=== PATIENT | male | born 1985 | race American Indian/Alaskan Native ===

== ENCOUNTER 2017-10-20 13:06 | Emergency (ER) | payer SELFPAY ==
--- NOTE | 2017-10-20 14:16 | Emergency Department Report ---
HPI - General Chief Complaint: Dental/Oral Time Seen by Provider: 10/20/17 13:47 - HPI HPI: Pt reports that he's been having toothache for over 2 months but started having dental abscess 4 days ago. He said he has a dentist but he came to the emergency room because his dentist like him to be an antibiotic before he do any procedure on him. Since that he has problems with his right lower back tooth that is been ongoing due to gum problem and cracked tooth at the back. Pain is 4-10 and a kin on and off. Patient is a smoker. Pain is better when he is not talking worse with eating and talking. Denies any fever or chills. No sore throat or drooling. Denies any difficulty swallowing. Shortness of breath or chest pain.Denies any nasal congestion,runnynose or sinus pain or pressure. No [id number]-[id number] pain medication taken per patient ED Past Medical Hx - Past Medical History Previous Medical History?: Yes Additional medical history: toothach - Surgical History Past Surgical History?: No - Family History Family history: no significant - Social History Smoking Status: Current Every Day Smoker Substance Use Type: Alcohol, Non Opiate Pain - Medications Home Medications: Home Medications Medication Instructions Recorded Confirmed Last Taken Type Acetaminophen/Codeine [Tylenol 1 tab PO Q6H PRN 16 Days #12 tab 10/20/17 Unknown Rx /Codeine # 3 tab] Ibuprofen [Motrin] 600 mg PO Q8H PRN 7 Days #21 tablet 10/20/17 Unknown Rx Penicillin V Potassium 500 mg PO Q8H 10 Days #30 tablet 10/20/17 Unknown Rx ED Review of Systems ROS: Stated complaint: ABCESS Other details as noted in HPI Comment: All other systems reviewed and negative Constitutional: no symptoms reported Eyes: denies: eye pain, eye discharge ENT: dental pain, other (reports dental abscess). denies: ear pain, throat pain , congestion Respiratory: no symptoms reported Cardiovascular: denies: chest pain, palpitations, dyspnea on exertion, orthopnea , edema, syncope, paroxysmal nocturnal dyspnea Gastrointestinal: denies: abdominal pain, nausea, vomiting Musculoskeletal: denies: back pain, joint swelling, arthralgia, myalgia Skin: denies: rash Physical Exam - Physical Exam Vital Signs: Vital Signs 10/20/17 13:30 Temperature 98.6 F Pulse Rate 88 Respiratory 20 Rate Blood Pressure 124/69 O2 Sat by Pulse 97 Oximetry General: This is a 32-year-old male well-nourished well-developed in no acute distress. Physical Exam: Head: Normocephalic atraumatic Ears:BIateral TM arcos without loss of bony landmark. Paul EAC with normal exam. No mastoid bone tenderness. Mouth: Moist, no pharyngeal erythema or exudate . No tonsillar erythema or exudate. UVULA midline and oral airways patent. No peritonsillar abscess. Pt with mild gingivitis, dental caries, tooth #32 with partial fracture without any palpable exposure. Tenderness to palpation around tooth #32 without any indurated areas. No trismus. Neck: Nontender to palpate, supple, normal range of motion. No adenopathy. No c- spine tenderness. Nose: Bilateral nasal mucosa exam .maxillary and frontal sinuses non-tender to palpate. Eyes: Sclerae and conjunctiva without injection. Bilateral pupils equal and reactive to light. Bilateral lids are normal. Normal accommodation.BEOMI Lungs: Clear to auscultate bilaterally, no rhonchi wheezes or rales. Normal work of breathing and no chest wall tenderness CV: S1, S2. Regular rate and rhythm negative murmur. Capillary refill is less than 3 seconds Skin: Clean dry and intact, no rashes or lesions Psych: Normal mood and behavior ED Course Vital Signs 10/20/17 13:30 Temperature 98.6 F Pulse Rate 88 Respiratory 20 Rate Blood Pressure 124/69 O2 Sat by Pulse 97 Oximetry - Reevaluation(s) Reevaluation #1: 10/20/17 14:52 stable throughout ED course he was given Motrin 800 mg in the emergency room for a toothache. ED Medical Decision Making - Medical Decision Making ED course: She presents emergency room with complaints of right posterior toothache that has been having problems it for months. He said he developed abscess over the past 4 days and his dentist will not do any procedure on him until he is on antibiotic for a few days. He said he was sent to the emergency room to start antibiotic before any procedure. Denies any fever or chills. Patient with mild gingivitis, tenderness palpated around to it #32 with multiple dental caries. He is also a smoker which he said he smokes occasionally. Smoking cessation encouraged. Patient given Motrin 800 mg and emergency room for pain which helped his pain. Discharged home with prescription for Tylenol No. 3, Motrin and penicillin and to follow-up with his dentist in 3-4 days. Critical care attestation.: If time is entered above; I have spent that time in minutes in the direct care of this critically ill patient, excluding procedure time. ED Disposition Clinical Impression: Toothache, Gingivitis, Dental caries Disposition: TO HOME OR SELFCARE Is pt being admited?: No Does the pt Need Aspirin: No Condition: Stable Instructions: Dental Caries (ED), Toothache (ED), Gingivitis (ED) Additional Instructions: gargle with Listerine mouthwash twice daily Floss twice daily Take antibiotic as prescribed Do not drive or operate heavy machinery while taking Tylenol No. 3 as this medication causes drowsiness Follow up WITH your dentist in 3-4 days and if you're unable to follow. Dentist you can call [facility]. Prescriptions: Acetaminophen/Codeine [Tylenol /Codeine # 3 tab] 1 tab PO Q6H PRN 16 Days #12 tab PRN Reason: Pain, Moderate (4-6) Ibuprofen [Motrin] 600 mg PO Q8H PRN 7 Days #21 tablet PRN Reason: Pain Penicillin V Potassium 500 mg PO Q8H 10 Days #30 tablet Referrals: WHITNEY ROTHMAN MD [Primary Care Provider] - 3-5 Days Your, dentist [Other] - 10/23/17 [facility] [Outside] - 10/23/17 Forms: Work/School Release Form(ED)
[2017-10-20] MEDS ORDERED: MOTRIN PO ONE (14:21)
[2017-10-20 15:08] VITALS: BP 127/82
== END 2017-10-20 15:07 | disposition home or self-care (01) ==
LOC: ED 13:06
DX: K04.7 Periapical abscess without sinus (principal); K02.9 Dental caries, unspecified; K05.10 Chronic gingivitis, plaque induced; F17.200 Nicotine dependence, unspecified, uncomplicated
CPT/HCPCS: 99282

== ENCOUNTER 2018-04-28 14:39 | Emergency (ER) | payer OTHER ==
[2018-04-28 14:50] VITALS: BP 133/84
--- NOTE | 2018-04-28 16:43 | Emergency Department Report ---
ED ENT HPI - General Chief complaint: Dental/Oral Stated complaint: TOOTH ABCESS Time Seen by Provider: 04/28/18 16:43 Source: patient Mode of arrival: Ambulatory Limitations: No Limitations - History of Present Illness Initial comments: This is a 32-year-old male nontoxic, well nourished in appearance, no acute signs of distress presents to the ED with c/o of right lower toothache 3 weeks. Patient denies following up with a dentist. Patient stated that pain radiates from his job to his rigth side of head. Patient otherwise denies any head trauma. Patient describes toothache as aching level of 8 out of 10. Patient denies any facial swelling. Patient denies any numbness, tingling, fever, chills, headache, stiff neck, abdominal pain, chest pain, shortness of breath. Patient denies any drug allergies or significant past medical history. MD complaint: tooth pain -: week(s) (3) Location: tooth # 1 - pain here Severity: mild Severity scale (0 -10): 8 Quality: aching Consistency: constant Improves with: none Worsens with: none Associated Symptoms: gum swelling, toothache. denies: fever, cough, pain with swallowing, sore throat, tinnitus, hearing loss, discharge from ear, rhinorrhea - Related Data Previous Rx's Medication Instructions Recorded Last Taken Type Acetaminophen/Codeine [Tylenol 1 tab PO Q6H PRN 16 Days #12 tab 10/20/17 Unknown Rx /Codeine # 3 tab] Ibuprofen [Motrin] 600 mg PO Q8H PRN 7 Days #21 tablet 10/20/17 Unknown Rx Penicillin V Potassium 500 mg PO Q8H 10 Days #30 tablet 10/20/17 Unknown Rx Acetaminophen/Codeine [Tylenol 1 tab PO Q6H PRN #12 tab 04/28/18 Unknown Rx /Codeine # 3 tab] Amoxicillin/Potassium Clav 1 each PO Q12H #20 tablet 04/28/18 Unknown Rx [Augmentin 875-125 Tablet] Chlorhexidine Mouthwash [Peridex] 15 ml MM BID #1 bottle 04/28/18 Unknown Rx Ibuprofen [Motrin] 600 mg PO Q8H PRN #30 tablet 04/28/18 Unknown Rx Allergies Allergy/AdvReac Type Severity Reaction Status Date / Time No Known Allergies Allergy Verified 04/28/18 14:50 ED Dental HPI - General Chief complaint: Dental/Oral Stated complaint: TOOTH ABCESS Time Seen by Provider: 04/28/18 16:43 Source: patient Mode of arrival: Ambulatory Limitations: No Limitations - Related Data Previous Rx's Medication Instructions Recorded Last Taken Type Acetaminophen/Codeine [Tylenol 1 tab PO Q6H PRN 16 Days #12 tab 10/20/17 Unknown Rx /Codeine # 3 tab] Ibuprofen [Motrin] 600 mg PO Q8H PRN 7 Days #21 tablet 10/20/17 Unknown Rx Penicillin V Potassium 500 mg PO Q8H 10 Days #30 tablet 10/20/17 Unknown Rx Acetaminophen/Codeine [Tylenol 1 tab PO Q6H PRN #12 tab 04/28/18 Unknown Rx /Codeine # 3 tab] Amoxicillin/Potassium Clav 1 each PO Q12H #20 tablet 04/28/18 Unknown Rx [Augmentin 875-125 Tablet] Chlorhexidine Mouthwash [Peridex] 15 ml MM BID #1 bottle 04/28/18 Unknown Rx Ibuprofen [Motrin] 600 mg PO Q8H PRN #30 tablet 04/28/18 Unknown Rx Allergies Allergy/AdvReac Type Severity Reaction Status Date / Time No Known Allergies Allergy Verified 04/28/18 14:50 ED Review of Systems ROS: Stated complaint: TOOTH ABCESS Other details as noted in HPI Constitutional: denies: chills, fever Eyes: denies: eye pain, eye discharge, vision change ENT: dental pain. denies: ear pain, throat pain Respiratory: denies: cough, shortness of breath, wheezing Cardiovascular: denies: chest pain, palpitations Endocrine: no symptoms reported Gastrointestinal: denies: abdominal pain, nausea, diarrhea Genitourinary: denies: urgency, dysuria Musculoskeletal: denies: back pain, joint swelling, arthralgia Skin: denies: rash, lesions Neurological: denies: headache, weakness, paresthesias Psychiatric: denies: anxiety, depression Hematological/Lymphatic: denies: easy bleeding, easy bruising ED Past Medical Hx - Past Medical History Previous Medical History?: No Additional medical history: toothach - Surgical History Past Surgical History?: No - Social History Smoking Status: Current Some Day Smoker Substance Use Type: Alcohol - Medications Home Medications: Home Medications Medication Instructions Recorded Confirmed Last Taken Type Acetaminophen/Codeine [Tylenol 1 tab PO Q6H PRN 16 Days #12 tab 10/20/17 Unknown Rx /Codeine # 3 tab] Ibuprofen [Motrin] 600 mg PO Q8H PRN 7 Days #21 tablet 10/20/17 Unknown Rx Penicillin V Potassium 500 mg PO Q8H 10 Days #30 tablet 10/20/17 Unknown Rx Acetaminophen/Codeine [Tylenol 1 tab PO Q6H PRN #12 tab 04/28/18 Unknown Rx /Codeine # 3 tab] Amoxicillin/Potassium Clav 1 each PO Q12H #20 tablet 04/28/18 Unknown Rx [Augmentin 875-125 Tablet] Chlorhexidine Mouthwash [Peridex] 15 ml MM BID #1 bottle 04/28/18 Unknown Rx Ibuprofen [Motrin] 600 mg PO Q8H PRN #30 tablet 04/28/18 Unknown Rx ED Physical Exam - General Limitations: No Limitations General appearance: alert, in no apparent distress - Head Head exam: Present: atraumatic, normocephalic - Eye Eye exam: Present: normal appearance Pupils: Present: normal accommodation - ENT ENT exam: Present: mucous membranes moist, TM's normal bilaterally, normal external ear exam - Expanded ENT Exam Expanded Ear exam: Present: normal external inspection Mouth exam: Present: normal external inspection, tongue normal. Absent: drooling, trismus, muffled voice, tongue elevation, laceration Teeth exam: Present: dental caries, fractured tooth #, dental tenderness #, gingival enlargement, other (No facial swelling. ) Throat exam: Positive: normal inspection, other (Uvula midline. ). Negative: tonsillar erythema, tonsillomegaly, tonsillar exudate, R peritonsillar mass, L peritonsillar mass - Neck Neck exam: Present: normal inspection, full ROM. Absent: tenderness, meningismus, lymphadenopathy - Respiratory Respiratory exam: Present: normal lung sounds bilaterally. Absent: respiratory distress, wheezes, rales, rhonchi, stridor, chest wall tenderness, accessory muscle use, decreased breath sounds, prolonged expiratory - Cardiovascular Cardiovascular Exam: Present: regular rate, normal rhythm, normal heart sounds. Absent: bradycardia, tachycardia, irregular rhythm, systolic murmur, diastolic murmur, rubs, gallop - GI/Abdominal GI/Abdominal exam: Present: soft, normal bowel sounds. Absent: distended, tenderness, guarding, rebound, rigid, diminished bowel sounds - Rectal Rectal exam: Present: deferred - Extremities Exam Extremities exam: Present: normal inspection - Back Exam Back exam: Present: normal inspection - Neurological Exam Neurological exam: Present: alert, oriented X3 - Psychiatric Psychiatric exam: Present: normal affect, normal mood - Skin Skin exam: Present: warm, dry, intact, normal color. Absent: rash ED Course Vital Signs 04/28/18 14:45 Temperature 98.6 F Pulse Rate 76 Respiratory 18 Rate Blood Pressure 133/84 O2 Sat by Pulse 97 Oximetry - Reevaluation(s) Reevaluation #1: 04/28/18 17:20 Patient is speaking in full sentences with no signs of distress noted. Critical care attestation.: If time is entered above; I have spent that time in minutes in the direct care of this critically ill patient, excluding procedure time. ED Disposition Clinical Impression: Dental caries, Gingivitis Disposition: DC-01 TO HOME OR SELFCARE Is pt being admited?: No Does the pt Need Aspirin: No Condition: Stable Instructions: Dental Caries (ED), Gingivitis (ED), Amoxicillin/Clavulanate Potassium (By mouth), Acetaminophen/Codeine (By mouth), Ibuprofen (By mouth) Additional Instructions: Follow-up with a dentist doctor in 3-5 days or if symptoms worsen and continue return to emergency room as soon as possible. Do not operate any machinery while taking Tylenol with Codeine as this may cause drowsiness. Prescriptions: Acetaminophen/Codeine [Tylenol /Codeine # 3 tab] 1 tab PO Q6H PRN #12 tab PRN Reason: Pain , Severe (7-10) Amoxicillin/Potassium Clav [Augmentin 875-125 Tablet] 1 each PO Q12H #20 tablet Chlorhexidine Mouthwash [Peridex] 15 ml MM BID #1 bottle Ibuprofen [Motrin] 600 mg PO Q8H PRN #30 tablet PRN Reason: Pain Referrals: PRIMARY CARE, [Primary Care Provider] - 3-5 Days JAYDEN LACKEY MD [Staff Physician] - 3-5 Days [facility] [Outside] - [facility]5 Days [facility] - [facility]-5 Days Forms: Work/School Release Form(ED)
[2018-04-28] MEDS ORDERED: MOTRIN PO ONE (17:16)
== END 2018-04-28 17:35 | disposition home or self-care (01) ==
LOC: ED 14:39
DX: K02.9 Dental caries, unspecified (principal); K05.10 Chronic gingivitis, plaque induced; F17.200 Nicotine dependence, unspecified, uncomplicated
CPT/HCPCS: 99282

== ENCOUNTER 2018-06-21 09:38 | Emergency (ER) | payer BC, OTHER ==
[2018-06-21 09:50] VITALS: BP 128/75
--- NOTE | 2018-06-21 10:40 | Emergency Department Report ---
ED ENT HPI - General Chief complaint: Dental/Oral Stated complaint: TOOTH ABSESS Time Seen by Provider: 06/21/18 10:23 Source: patient Mode of arrival: Ambulatory Limitations: No Limitations - History of Present Illness Initial comments: Patient is a 33-year-old male who is complaining of right-sided toothache in tooth #32 for the past 3 days. Patient states he has some mild swelling to the right jaw as well. Patient states pain is 7 out of 10 and is aching. Patient's has not seen a dentist in the past secondary to not having insurance however does have insurance currently. Patient here for possible antibiotics as his tooth may be pulled in the future. Associated Symptoms: gum swelling, toothache. denies: fever, cough, pain with swallowing, sore throat, tinnitus, discharge from ear - Related Data Previous Rx's Medication Instructions Recorded Last Taken Type Acetaminophen/Codeine [Tylenol 1 tab PO Q6H PRN 16 Days #12 tab 10/20/17 Unknown Rx /Codeine # 3 tab] Ibuprofen [Motrin] 600 mg PO Q8H PRN 7 Days #21 tablet 10/20/17 Unknown Rx Penicillin V Potassium 500 mg PO Q8H 10 Days #30 tablet 10/20/17 Unknown Rx Acetaminophen/Codeine [Tylenol 1 tab PO Q6H PRN #12 tab 04/28/18 Unknown Rx /Codeine # 3 tab] Amoxicillin/Potassium Clav 1 each PO Q12H #20 tablet 04/28/18 Unknown Rx [Augmentin 875-125 Tablet] Chlorhexidine Mouthwash [Peridex] 15 ml MM BID #1 bottle 04/28/18 Unknown Rx Ibuprofen [Motrin] 600 mg PO Q8H PRN #30 tablet 04/28/18 Unknown Rx Clindamycin [Clindamycin CAP] 300 mg PO Q8H 7 Days cap 06/21/18 Unknown Rx HYDROcodone/APAP 5-325 [[place] 1 each PO Q4HR PRN #12 tablet 06/21/18 Unknown Rx 5/325] Ibuprofen [Motrin] 800 mg PO Q8HR PRN #20 tablet 06/21/18 Unknown Rx Allergies Allergy/AdvReac Type Severity Reaction Status Date / Time No Known Allergies Allergy Verified 06/21/18 09:48 ED Dental HPI - General Chief complaint: Dental/Oral Stated complaint: TOOTH ABSESS Time Seen by Provider: 06/21/18 10:23 Source: patient Mode of arrival: Ambulatory Limitations: No Limitations - Related Data Previous Rx's Medication Instructions Recorded Last Taken Type Acetaminophen/Codeine [Tylenol 1 tab PO Q6H PRN 16 Days #12 tab 10/20/17 Unknown Rx /Codeine # 3 tab] Ibuprofen [Motrin] 600 mg PO Q8H PRN 7 Days #21 tablet 10/20/17 Unknown Rx Penicillin V Potassium 500 mg PO Q8H 10 Days #30 tablet 10/20/17 Unknown Rx Acetaminophen/Codeine [Tylenol 1 tab PO Q6H PRN #12 tab 04/28/18 Unknown Rx /Codeine # 3 tab] Amoxicillin/Potassium Clav 1 each PO Q12H #20 tablet 04/28/18 Unknown Rx [Augmentin 875-125 Tablet] Chlorhexidine Mouthwash [Peridex] 15 ml MM BID #1 bottle 04/28/18 Unknown Rx Ibuprofen [Motrin] 600 mg PO Q8H PRN #30 tablet 04/28/18 Unknown Rx Clindamycin [Clindamycin CAP] 300 mg PO Q8H 7 Days cap 06/21/18 Unknown Rx HYDROcodone/APAP 5-325 [[place] 1 each PO Q4HR PRN #12 tablet 06/21/18 Unknown Rx 5/325] Ibuprofen [Motrin] 800 mg PO Q8HR PRN #20 tablet 06/21/18 Unknown Rx Allergies Allergy/AdvReac Type Severity Reaction Status Date / Time No Known Allergies Allergy Verified 06/21/18 09:48 ED Review of Systems ROS: Stated complaint: TOOTH ABSESS Other details as noted in HPI Comment: All other systems reviewed and negative ED Past Medical Hx - Past Medical History Previous Medical History?: No Additional medical history: toothach - Surgical History Past Surgical History?: No - Social History Smoking Status: Current Some Day Smoker Substance Use Type: Alcohol - Medications Home Medications: Home Medications Medication Instructions Recorded Confirmed Last Taken Type Acetaminophen/Codeine [Tylenol 1 tab PO Q6H PRN 16 Days #12 tab 10/20/17 Unknown Rx /Codeine # 3 tab] Ibuprofen [Motrin] 600 mg PO Q8H PRN 7 Days #21 tablet 10/20/17 Unknown Rx Penicillin V Potassium 500 mg PO Q8H 10 Days #30 tablet 10/20/17 Unknown Rx Acetaminophen/Codeine [Tylenol 1 tab PO Q6H PRN #12 tab 04/28/18 Unknown Rx /Codeine # 3 tab] Amoxicillin/Potassium Clav 1 each PO Q12H #20 tablet 04/28/18 Unknown Rx [Augmentin 875-125 Tablet] Chlorhexidine Mouthwash [Peridex] 15 ml MM BID #1 bottle 04/28/18 Unknown Rx Ibuprofen [Motrin] 600 mg PO Q8H PRN #30 tablet 04/28/18 Unknown Rx Clindamycin [Clindamycin CAP] 300 mg PO Q8H 7 Days cap 06/21/18 Unknown Rx HYDROcodone/APAP 5-325 [[place] 1 each PO Q4HR PRN #12 tablet 06/21/18 Unknown Rx 5/325] Ibuprofen [Motrin] 800 mg PO Q8HR PRN #20 tablet 06/21/18 Unknown Rx ED Physical Exam - General Limitations: No Limitations General appearance: alert, in no apparent distress - Head Head exam: Present: atraumatic, normocephalic - Eye Eye exam: Present: normal appearance - ENT ENT exam: Present: mucous membranes moist, other (patient's tooth #32 is necrotic warm down to the gum) - Neck Neck exam: Present: normal inspection - Respiratory Respiratory exam: Present: normal lung sounds bilaterally. Absent: respiratory distress - Cardiovascular Cardiovascular Exam: Present: regular rate, normal rhythm. Absent: systolic murmur, diastolic murmur, rubs, gallop - GI/Abdominal GI/Abdominal exam: Present: soft, normal bowel sounds - Rectal Rectal exam: Present: deferred - Extremities Exam Extremities exam: Present: normal inspection - Back Exam Back exam: Present: normal inspection - Neurological Exam Neurological exam: Present: alert, oriented X3 - Psychiatric Psychiatric exam: Present: normal affect, normal mood - Skin Skin exam: Present: warm, dry, intact, normal color. Absent: rash ED Course Vital Signs 06/21/18 09:48 Temperature 99.1 F Pulse Rate 78 Respiratory 18 Rate Blood Pressure 128/75 O2 Sat by Pulse 98 Oximetry ED Medical Decision Making - Medical Decision Making Patient is started on antibiotics and pain meds will be referred to dentistry. Critical care attestation.: If time is entered above; I have spent that time in minutes in the direct care of this critically ill patient, excluding procedure time. ED Disposition Clinical Impression: Dental abscess Disposition: DC-01 TO HOME OR SELFCARE Is pt being admited?: No Does the pt Need Aspirin: No Condition: Stable Instructions: Dental Abscess (ED) Referrals: PRIMARY CARE, [Primary Care Provider] - 3-5 Days Forms: Work/School Release Form(ED) Time of Disposition: 10:39
== END 2018-06-21 10:50 | disposition home or self-care (01) ==
LOC: ED 09:38
DX: K04.7 Periapical abscess without sinus (principal); F17.200 Nicotine dependence, unspecified, uncomplicated
CPT/HCPCS: 99282

== ENCOUNTER 2018-07-15 10:17 | Emergency (ER) | payer BC ==
--- NOTE | 2018-07-15 12:55 | Emergency Department Report ---
ED General Adult HPI - General Chief complaint: Pain General Stated complaint: SWELLING ON RIGHT KNEE Time Seen by Provider: 07/15/18 12:55 Source: patient Mode of arrival: Ambulatory Limitations: No Limitations - Related Data Previous Rx's Medication Instructions Recorded Last Taken Type Acetaminophen/Codeine [Tylenol 1 tab PO Q6H PRN 16 Days #12 tab 10/20/17 Unknown Rx /Codeine # 3 tab] Ibuprofen [Motrin] 600 mg PO Q8H PRN 7 Days #21 tablet 10/20/17 Unknown Rx Penicillin V Potassium 500 mg PO Q8H 10 Days #30 tablet 10/20/17 Unknown Rx Acetaminophen/Codeine [Tylenol 1 tab PO Q6H PRN #12 tab 04/28/18 Unknown Rx /Codeine # 3 tab] Amoxicillin/Potassium Clav 1 each PO Q12H #20 tablet 04/28/18 Unknown Rx [Augmentin 875-125 Tablet] Chlorhexidine Mouthwash [Peridex] 15 ml MM BID #1 bottle 04/28/18 Unknown Rx Ibuprofen [Motrin] 600 mg PO Q8H PRN #30 tablet 04/28/18 Unknown Rx Clindamycin [Clindamycin CAP] 300 mg PO Q8H 7 Days cap 06/21/18 Unknown Rx HYDROcodone/APAP 5-325 [[place] 1 each PO Q4HR PRN #12 tablet 06/21/18 Unknown Rx 5/325] Ibuprofen [Motrin] 800 mg PO Q8HR PRN #20 tablet 06/21/18 Unknown Rx Allergies Allergy/AdvReac Type Severity Reaction Status Date / Time No Known Allergies Allergy Verified 06/21/18 09:48 ED Review of Systems ROS: Stated complaint: SWELLING ON RIGHT KNEE Other details as noted in HPI ED Past Medical Hx - Past Medical History Previous Medical History?: No Additional medical history: toothach - Social History Smoking Status: Current Some Day Smoker - Medications Home Medications: Home Medications Medication Instructions Recorded Confirmed Last Taken Type Acetaminophen/Codeine [Tylenol 1 tab PO Q6H PRN 16 Days #12 tab 10/20/17 Unknown Rx /Codeine # 3 tab] Ibuprofen [Motrin] 600 mg PO Q8H PRN 7 Days #21 tablet 10/20/17 Unknown Rx Penicillin V Potassium 500 mg PO Q8H 10 Days #30 tablet 10/20/17 Unknown Rx Acetaminophen/Codeine [Tylenol 1 tab PO Q6H PRN #12 tab 04/28/18 Unknown Rx /Codeine # 3 tab] Amoxicillin/Potassium Clav 1 each PO Q12H #20 tablet 04/28/18 Unknown Rx [Augmentin 875-125 Tablet] Chlorhexidine Mouthwash [Peridex] 15 ml MM BID #1 bottle 04/28/18 Unknown Rx Ibuprofen [Motrin] 600 mg PO Q8H PRN #30 tablet 04/28/18 Unknown Rx Clindamycin [Clindamycin CAP] 300 mg PO Q8H 7 Days cap 06/21/18 Unknown Rx HYDROcodone/APAP 5-325 [[place] 1 each PO Q4HR PRN #12 tablet 06/21/18 Unknown Rx 5/325] Ibuprofen [Motrin] 800 mg PO Q8HR PRN #20 tablet 06/21/18 Unknown Rx ED Physical Exam - General Limitations: No Limitations ED Course Vital Signs 07/15/18 10:36 Temperature 99.4 F Pulse Rate 89 Respiratory 16 Rate Blood Pressure 121/72 O2 Sat by Pulse 96 Oximetry Critical care attestation.: If time is entered above; I have spent that time in minutes in the direct care of this critically ill patient, excluding procedure time. ED Disposition Condition: Stable Referrals: PRIMARY CARE, [Primary Care Provider] - 3-5 Days
--- NOTE | 2018-07-15 13:14 | Emergency Department Report ---
ED Lower Extremity HPI - General Chief Complaint: Pain General Stated Complaint: SWELLING ON RIGHT KNEE Time Seen by Provider: 07/15/18 12:55 Source: patient, family Mode of arrival: Ambulatory Limitations: No Limitations - History of Present Illness Initial Comments: Patient reports that this he has swelling and pain to his right knee without any trauma. He states the ibuprofen last night which helped a little. Pain is 8/10 and achy and he said he is limping. Patient played football for 2 years but he said he never had any knee problem. Pale and mildly alleviated by Motrin and exacerbated by movement. Denies any fever or chills. Denies any redness or bruising to me. Complaint: knee injury (right knee) Onset/Timin -: days(s) Injury: Knee: Right (swelling and pain) Type of Injury: unknown Place: home Severity: severe Severity scale (0 -10): 8 Improves With: NSAID Worsens With: weight bearing, movement, palpation Context: walking Associated Symptoms: swelling, ambulatory. denies: numbness, tingling, unable to bear weight, able to partially bear weight Treatments Prior to Arrival: NSAIDS - Related Data Previous Rx's Medication Instructions Recorded Last Taken Type Acetaminophen/Codeine [Tylenol 1 tab PO Q6H PRN 16 Days #12 tab 10/20/17 Unknown Rx /Codeine # 3 tab] Ibuprofen [Motrin] 600 mg PO Q8H PRN 7 Days #21 tablet 10/20/17 Unknown Rx Penicillin V Potassium 500 mg PO Q8H 10 Days #30 tablet 10/20/17 Unknown Rx Acetaminophen/Codeine [Tylenol 1 tab PO Q6H PRN #12 tab 04/28/18 Unknown Rx /Codeine # 3 tab] Amoxicillin/Potassium Clav 1 each PO Q12H #20 tablet 04/28/18 Unknown Rx [Augmentin 875-125 Tablet] Chlorhexidine Mouthwash [Peridex] 15 ml MM BID #1 bottle 04/28/18 Unknown Rx Ibuprofen [Motrin] 600 mg PO Q8H PRN #30 tablet 04/28/18 Unknown Rx Clindamycin [Clindamycin CAP] 300 mg PO Q8H 7 Days cap 06/21/18 Unknown Rx HYDROcodone/APAP 5-325 [[place] 1 each PO Q4HR PRN #12 tablet 06/21/18 Unknown Rx 5/325] Ibuprofen [Motrin] 800 mg PO Q8HR PRN #20 tablet 06/21/18 Unknown Rx Ibuprofen [Motrin] 800 mg PO Q8HR PRN #15 tablet 07/15/18 Unknown Rx traMADol [Ultram 50 MG tab] 50 mg PO Q6HR PRN #20 tablet 07/15/18 Unknown Rx Allergies Allergy/AdvReac Type Severity Reaction Status Date / Time No Known Allergies Allergy Verified 06/21/18 09:48 ED Review of Systems ROS: Stated complaint: SWELLING ON RIGHT KNEE Other details as noted in HPI Constitutional: denies: chills, fever Respiratory: denies: cough, shortness of breath, SOB with exertion, SOB at rest , stridor, wheezing Cardiovascular: denies: chest pain, palpitations, edema, syncope Gastrointestinal: denies: nausea, vomiting, diarrhea Genitourinary: denies: urgency, dysuria Musculoskeletal: joint swelling, arthralgia. denies: back pain Skin: denies: rash, lesions Neurological: abnormal gait. denies: headache, weakness, numbness, paresthesias , vertigo ED Past Medical Hx - Past Medical History Previous Medical History?: Yes Additional medical history: toothach - Surgical History Past Surgical History?: No - Family History Family history: hypertension - Social History Smoking Status: Current Some Day Smoker Substance Use Type: None - Medications Home Medications: Home Medications Medication Instructions Recorded Confirmed Last Taken Type Acetaminophen/Codeine [Tylenol 1 tab PO Q6H PRN 16 Days #12 tab 10/20/17 Unknown Rx /Codeine # 3 tab] Ibuprofen [Motrin] 600 mg PO Q8H PRN 7 Days #21 tablet 10/20/17 Unknown Rx Penicillin V Potassium 500 mg PO Q8H 10 Days #30 tablet 10/20/17 Unknown Rx Acetaminophen/Codeine [Tylenol 1 tab PO Q6H PRN #12 tab 04/28/18 Unknown Rx /Codeine # 3 tab] Amoxicillin/Potassium Clav 1 each PO Q12H #20 tablet 04/28/18 Unknown Rx [Augmentin 875-125 Tablet] Chlorhexidine Mouthwash [Peridex] 15 ml MM BID #1 bottle 04/28/18 Unknown Rx Ibuprofen [Motrin] 600 mg PO Q8H PRN #30 tablet 04/28/18 Unknown Rx Clindamycin [Clindamycin CAP] 300 mg PO Q8H 7 Days cap 06/21/18 Unknown Rx HYDROcodone/APAP 5-325 [[place] 1 each PO Q4HR PRN #12 tablet 06/21/18 Unknown Rx 5/325] Ibuprofen [Motrin] 800 mg PO Q8HR PRN #20 tablet 06/21/18 Unknown Rx Ibuprofen [Motrin] 800 mg PO Q8HR PRN #15 tablet 07/15/18 Unknown Rx traMADol [Ultram 50 MG tab] 50 mg PO Q6HR PRN #20 tablet 07/15/18 Unknown Rx ED Physical Exam - General Limitations: No Limitations General appearance: alert, in no apparent distress - Head Head exam: Present: atraumatic, normocephalic, normal inspection - Eye Eye exam: Present: normal appearance, PERRL, EOMI Pupils: Present: normal accommodation - ENT ENT exam: Present: normal exam, normal orophraynx, mucous membranes moist - Neck Neck exam: Present: normal inspection, full ROM. Absent: tenderness, lymphadenopathy - Respiratory Respiratory exam: Present: normal lung sounds bilaterally. Absent: respiratory distress, chest wall tenderness - Cardiovascular Cardiovascular Exam: Present: regular rate, normal rhythm, normal heart sounds. Absent: systolic murmur, diastolic murmur - Extremities Exam Extremities exam: Present: normal inspection, full ROM (patient has full range of motion to knees but pain to right knee with flexion and extension.), tenderness (right knee), normal capillary refill, joint swelling (right knee), other (patient ambulates with limp.). Absent: pedal edema, calf tenderness - Expanded Lower Extremity Exam Right Hip exam: Present: normal inspection, full ROM. Absent: tenderness, swelling, abrasion, laceration, ecchymosis, deformity, crepidus, dislocation, erythema, external rotation, internal rotation, shortening Upper Leg exam: Present: normal inspection, full ROM. Absent: tenderness, swelling, abrasion, laceration, ecchymosis, deformity, crepidus, dislocation, erythema Knee exam: Present: full ROM (full range of motion to knee but pain with extension and flexion.), tenderness (anterior knee), swelling (mild swelling anterior knee), effusion (anterior knee mild), full knee extension. Absent: normal inspection, abrasion, laceration, ecchymosis, deformity, crepidus, dislocation, erythema, pain w/ pronation/supination, pain/laxity with valgus, pain/laxity with varus Lower Leg exam: Present: normal inspection, full ROM. Absent: tenderness, swelling, abrasion, laceration, ecchymosis, deformity, crepidus, dislocation, erythema, palpable cord, Eli's sign Ankle exam: Present: normal inspection, full ROM. Absent: tenderness, swelling , abrasion, laceration, ecchymosis, deformity, crepidus, dislocation, erythema Foot/Toe exam: Present: normal inspection, full ROM. Absent: tenderness, swelling, abrasion, laceration, ecchymosis, deformity, crepidus, dislocation, erythema, amputation, puncture wound, foreign body, calcaneal tenderness, tenderness at base of 5th metatarsal, nail avulsion, subungual hematoma Neuro vascular tendon exam: Present: no vascular compromise. Absent: pulse deficit, abnormal cap refill, motor deficit, sensory deficit, tendon deficit, extremity cold to touch, pallor, abnormal 2-point discrimination, decreased fine /light touch, foot drop, peroneal nerve deficit, significant pain with passive ROM of distal joint Gait: Positive: observed and limited by pain - Back Exam Back exam: Present: normal inspection, full ROM - Neurological Exam Neurological exam: Present: alert, oriented X3, abnormal gait (patient ambulates with a limp due to pain to left knee), reflexes normal. Absent: motor sensory deficit - Psychiatric Psychiatric exam: Present: normal affect, normal mood - Skin Skin exam: Present: warm, dry, intact, normal color. Absent: rash ED Course Vital Signs 07/15/18 07/15/18 07/15/18 10:36 14:32 14:33 Temperature 99.4 F Pulse Rate 89 Respiratory 16 18 18 Rate Blood Pressure 121/72 Blood Pressure [Right] O2 Sat by Pulse 96 Oximetry 07/15/18 16:43 Temperature Pulse Rate 72 Respiratory 18 Rate Blood Pressure Blood Pressure 122/70 [Right] O2 Sat by Pulse 99 Oximetry - Reevaluation(s) Reevaluation #1: 07/15/18 15:09 Patient given Motrin 800 mg by mouth and Montgomery 5/325 tablet by mouth for right knee pain and positive relief of pain and rated 10. Please see procedure note for the splint and - Orthopedic Splinting/Casting Injury #1 Side: right Lower Extremity Injury Location: knee Lower Extremity Immobilizer: Marlon wrap Additional Comments: Patient with 2+ pedal pulses. He has good color, sensation, movement and temperatures to all extremities. ED Lower Extremity MDM - Radiology Data Radiology results: report reviewed, image reviewed interpreted by me: X-ray films reviewed by myself and Dr. Homero durand and no acute fracture or dislocation seen. X-ray 3 views right knee dictated by radiologist and report reviewed by myself. Please see below for details Findings [facility] [address] [place] [address] XRay Report Signed Patient: NATALY BAIN MR#: [id number] : 1985 Acct:[id number] Age/Sex: 33 / M ADM Date: 07/15/18 Loc: ED Attending Dr: Ordering Physician: JHON BENSON Date of Service: 07/15/18 Procedure(s): XR knee 3V RT Accession Number(s): [id number] cc: JHON BENSON Fluoro Time In Minutes: RIGHT KNEE, 3 views: History: Right knee swelling and pain. The bony architecture is intact without evidence of fracture or dislocation. No significant soft tissue abnormality is seen. IMPRESSION: Normal right knee. Transcribed By: TTR Dictated By: JEANIE CHAPARRO JR, MD Electronically Authenticated By: JEANIE CHAPARRO JR, MD Signed Date/Time: 07/15/18 1506 DD/ 1506 TD/TT: 07/15/18 1506 - Medical Decision Making Is a 33-year-old male here with right knee pain and denies any injury. He reports that he played football for 2 years but his knees just started hurting and he is having pain with flex and extend his knee with some swelling to his right knee. Physical exam normal except findings for minimal effusion to anterior right knee and patient has pain with passive and active range of motion but he is able to flex and extend his knee without any restrictions. Patient had x-ray of right knee done and shows normal knee exam. This is dictated by radiologist and report reviewed by myself. I discussed x-ray report , diagnosis and treatment plan the patient voiced understanding. Patient with right knee pain and effusion and Marlon wrap placed a right knee, please refer to procedure note for details. Rice protocol explained. He was given Motrin 800 mg by mouth and Montgomery 5/325 one tablet. Emergency room which relieved his pain. Patient discharged home in stable condition with prescription for Ultram and Montgomery and to follow-up with orthopedic doctor. His pain is controlled and is in stable condition and he voiced understanding of discharge instructions. - Differential Diagnosis fracture versus dislocation, sprain, strain, musculoskeletal pain Critical care attestation.: If time is entered above; I have spent that time in minutes in the direct care of this critically ill patient, excluding procedure time. ED Disposition Clinical Impression: Effusion, right knee Acute knee pain Qualifiers: Laterality: right Qualified Code(s): M25.561 - Pain in right knee Disposition: DC- TO HOME OR SELFCARE Is pt being admited?: No Does the pt Need Aspirin: No Condition: Stable Instructions: Knee Effusion (ED), Knee Pain (ED), Arthralgia (ED), Knee Exercises (GEN), RICE Therapy (ED) Additional Instructions: See discharge instruction in Rice therapy Follow up with orthopedic doctor as instructed Take motrin and for pain but please do not taken and and his stomach that this medication causes stomach upset Take Ultram for severe pain and 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
[2018-07-15] MEDS ORDERED: NORCO 5/325 PO ONE (13:15)
[2018-07-15] MEDS ORDERED: MOTRIN PO ONE (13:15)
--- NOTE | 2018-07-15 15:06 | XRay Report ---
RIGHT KNEE, 3 views: History: Right knee swelling and pain. The bony architecture is intact without evidence of fracture or dislocation. No significant soft tissue abnormality is seen. IMPRESSION: Normal right knee.
[2018-07-15 16:43] VITALS: BP 122/70
== END 2018-07-15 15:16 | disposition home or self-care (01) ==
LOC: ED 10:17
DX: M25.461 Effusion, right knee (principal); F17.200 Nicotine dependence, unspecified, uncomplicated

== ENCOUNTER 2018-08-08 15:36 | Emergency (ER) | payer BC ==
[2018-08-08 15:43] VITALS: BP 141/84
--- NOTE | 2018-08-08 17:13 | Emergency Department Report ---
ED ENT HPI - General Chief complaint: Dental/Oral Stated complaint: FACE SWOLLEN/POSS ABSCESS Time Seen by Provider: 08/08/18 17:13 Source: patient Mode of arrival: Ambulatory Limitations: No Limitations - History of Present Illness Initial comments: This is a 33-year-old male nontoxic, well nourished in appearance, no acute signs of distress presents to the ED with c/o of chronic right lower toothache. Patient denies following up with a dentist but stated has an appointment this thrusday. Patient stated that pain radiates from his job to his rigth side of head. Patient otherwise denies any head trauma. Patient describes toothache as aching level of 8 out of 10. Patient denies any facial swelling. Patient denies any numbness, tingling, fever, chills, headache, stiff neck, abdominal pain, chest pain, shortness of breath. Patient denies any drug allergies or significant past medical history. MD complaint: tooth pain Location: tooth # (32) 1 - pain here Severity: mild Severity scale (0 -10): 8 Quality: aching Consistency: constant Improves with: none Worsens with: none Associated Symptoms: gum swelling, toothache. denies: fever, cough, pain with swallowing, sore throat, tinnitus, hearing loss, discharge from ear, rhinorrhea - Related Data Previous Rx's Medication Instructions Recorded Last Taken Type Acetaminophen/Codeine [Tylenol 1 tab PO Q6H PRN 16 Days #12 tab 10/20/17 Unknown Rx /Codeine # 3 tab] Ibuprofen [Motrin] 600 mg PO Q8H PRN 7 Days #21 tablet 10/20/17 Unknown Rx Penicillin V Potassium 500 mg PO Q8H 10 Days #30 tablet 10/20/17 Unknown Rx Acetaminophen/Codeine [Tylenol 1 tab PO Q6H PRN #12 tab 04/28/18 Unknown Rx /Codeine # 3 tab] Amoxicillin/Potassium Clav 1 each PO Q12H #20 tablet 04/28/18 Unknown Rx [Augmentin 875-125 Tablet] Chlorhexidine Mouthwash [Peridex] 15 ml MM BID #1 bottle 04/28/18 Unknown Rx Ibuprofen [Motrin] 600 mg PO Q8H PRN #30 tablet 04/28/18 Unknown Rx Clindamycin [Clindamycin CAP] 300 mg PO Q8H 7 Days cap 06/21/18 Unknown Rx HYDROcodone/APAP 5-325 [[place] 1 each PO Q4HR PRN #12 tablet 06/21/18 Unknown Rx 5/325] Ibuprofen [Motrin] 800 mg PO Q8HR PRN #20 tablet 06/21/18 Unknown Rx Ibuprofen [Motrin] 800 mg PO Q8HR PRN #15 tablet 07/15/18 Unknown Rx traMADol [Ultram 50 MG tab] 50 mg PO Q6HR PRN #20 tablet 07/15/18 Unknown Rx Chlorhexidine Mouthwash [Peridex] 15 ml MM BID #1 bottle 08/08/18 Unknown Rx Clindamycin [Clindamycin CAP] 300 mg PO Q8H #21 cap 08/08/18 Unknown Rx Ibuprofen [Motrin] 600 mg PO Q8H PRN #21 tablet 08/08/18 Unknown Rx Allergies Allergy/AdvReac Type Severity Reaction Status Date / Time No Known Allergies Allergy Verified 06/21/18 09:48 ED Dental HPI - General Chief complaint: Dental/Oral Stated complaint: FACE SWOLLEN/POSS ABSCESS Time Seen by Provider: 08/08/18 17:13 Source: patient Mode of arrival: Ambulatory Limitations: No Limitations - Related Data Previous Rx's Medication Instructions Recorded Last Taken Type Acetaminophen/Codeine [Tylenol 1 tab PO Q6H PRN 16 Days #12 tab 10/20/17 Unknown Rx /Codeine # 3 tab] Ibuprofen [Motrin] 600 mg PO Q8H PRN 7 Days #21 tablet 10/20/17 Unknown Rx Penicillin V Potassium 500 mg PO Q8H 10 Days #30 tablet 10/20/17 Unknown Rx Acetaminophen/Codeine [Tylenol 1 tab PO Q6H PRN #12 tab 04/28/18 Unknown Rx /Codeine # 3 tab] Amoxicillin/Potassium Clav 1 each PO Q12H #20 tablet 04/28/18 Unknown Rx [Augmentin 875-125 Tablet] Chlorhexidine Mouthwash [Peridex] 15 ml MM BID #1 bottle 04/28/18 Unknown Rx Ibuprofen [Motrin] 600 mg PO Q8H PRN #30 tablet 04/28/18 Unknown Rx Clindamycin [Clindamycin CAP] 300 mg PO Q8H 7 Days cap 06/21/18 Unknown Rx HYDROcodone/APAP 5-325 [[place] 1 each PO Q4HR PRN #12 tablet 06/21/18 Unknown Rx 5/325] Ibuprofen [Motrin] 800 mg PO Q8HR PRN #20 tablet 06/21/18 Unknown Rx Ibuprofen [Motrin] 800 mg PO Q8HR PRN #15 tablet 07/15/18 Unknown Rx traMADol [Ultram 50 MG tab] 50 mg PO Q6HR PRN #20 tablet 07/15/18 Unknown Rx Chlorhexidine Mouthwash [Peridex] 15 ml MM BID #1 bottle 08/08/18 Unknown Rx Clindamycin [Clindamycin CAP] 300 mg PO Q8H #21 cap 08/08/18 Unknown Rx Ibuprofen [Motrin] 600 mg PO Q8H PRN #21 tablet 08/08/18 Unknown Rx Allergies Allergy/AdvReac Type Severity Reaction Status Date / Time No Known Allergies Allergy Verified 06/21/18 09:48 ED Review of Systems ROS: Stated complaint: FACE SWOLLEN/POSS ABSCESS Other details as noted in HPI Constitutional: denies: chills, fever Eyes: denies: eye pain, eye discharge, vision change ENT: dental pain. denies: ear pain, throat pain Respiratory: denies: cough, shortness of breath, wheezing Cardiovascular: denies: chest pain, palpitations Endocrine: no symptoms reported Gastrointestinal: denies: abdominal pain, nausea, diarrhea Genitourinary: denies: urgency, dysuria Musculoskeletal: denies: back pain, joint swelling, arthralgia Skin: denies: rash, lesions Neurological: denies: headache, weakness, paresthesias Psychiatric: denies: anxiety, depression Hematological/Lymphatic: denies: easy bleeding, easy bruising ED Past Medical Hx - Past Medical History Previous Medical History?: No Additional medical history: toothach - Surgical History Past Surgical History?: No - Social History Smoking Status: Never Smoker Substance Use Type: None - Medications Home Medications: Home Medications Medication Instructions Recorded Confirmed Last Taken Type Acetaminophen/Codeine [Tylenol 1 tab PO Q6H PRN 16 Days #12 tab 10/20/17 Unknown Rx /Codeine # 3 tab] Ibuprofen [Motrin] 600 mg PO Q8H PRN 7 Days #21 tablet 10/20/17 Unknown Rx Penicillin V Potassium 500 mg PO Q8H 10 Days #30 tablet 10/20/17 Unknown Rx Acetaminophen/Codeine [Tylenol 1 tab PO Q6H PRN #12 tab 04/28/18 Unknown Rx /Codeine # 3 tab] Amoxicillin/Potassium Clav 1 each PO Q12H #20 tablet 04/28/18 Unknown Rx [Augmentin 875-125 Tablet] Chlorhexidine Mouthwash [Peridex] 15 ml MM BID #1 bottle 04/28/18 Unknown Rx Ibuprofen [Motrin] 600 mg PO Q8H PRN #30 tablet 04/28/18 Unknown Rx Clindamycin [Clindamycin CAP] 300 mg PO Q8H 7 Days cap 06/21/18 Unknown Rx HYDROcodone/APAP 5-325 [[place] 1 each PO Q4HR PRN #12 tablet 06/21/18 Unknown Rx 5/325] Ibuprofen [Motrin] 800 mg PO Q8HR PRN #20 tablet 06/21/18 Unknown Rx Ibuprofen [Motrin] 800 mg PO Q8HR PRN #15 tablet 07/15/18 Unknown Rx traMADol [Ultram 50 MG tab] 50 mg PO Q6HR PRN #20 tablet 07/15/18 Unknown Rx Chlorhexidine Mouthwash [Peridex] 15 ml MM BID #1 bottle 08/08/18 Unknown Rx Clindamycin [Clindamycin CAP] 300 mg PO Q8H #21 cap 08/08/18 Unknown Rx Ibuprofen [Motrin] 600 mg PO Q8H PRN #21 tablet 08/08/18 Unknown Rx ED Physical Exam - General Limitations: No Limitations General appearance: alert, in no apparent distress - Head Head exam: Present: atraumatic, normocephalic - Eye Eye exam: Present: normal appearance Pupils: Present: normal accommodation - ENT ENT exam: Present: mucous membranes moist, TM's normal bilaterally - Expanded ENT Exam Expanded Ear exam: Present: normal external inspection Mouth exam: Present: normal external inspection Teeth exam: Present: dental caries, fractured tooth # (32), dental tenderness # (2), gingival enlargement, other (no facial swelling) 1 - Fractured, Dental Tenderness Throat exam: Positive: normal inspection. Negative: tonsillar erythema, tonsillomegaly, tonsillar exudate, R peritonsillar mass, L peritonsillar mass - Neck Neck exam: Present: normal inspection, full ROM. Absent: tenderness, meningismus, lymphadenopathy - Respiratory Respiratory exam: Present: normal lung sounds bilaterally. Absent: respiratory distress - Cardiovascular Cardiovascular Exam: Present: regular rate, normal rhythm. Absent: systolic murmur, diastolic murmur, rubs, gallop - GI/Abdominal GI/Abdominal exam: Present: soft, normal bowel sounds - Rectal Rectal exam: Present: deferred - Extremities Exam Extremities exam: Present: normal inspection - Back Exam Back exam: Present: normal inspection - Neurological Exam Neurological exam: Present: alert, oriented X3 - Psychiatric Psychiatric exam: Present: normal affect, normal mood - Skin Skin exam: Present: warm, dry, intact, normal color. Absent: rash ED Course Vital Signs 08/08/18 15:40 Temperature 98.4 F Pulse Rate 87 Respiratory 16 Rate Blood Pressure 141/84 O2 Sat by Pulse 100 Oximetry - Reevaluation(s) Reevaluation #1: 08/08/18 17:49 Patient is speaking in full sentences with no signs of distress noted. Critical care attestation.: If time is entered above; I have spent that time in minutes in the direct care of this critically ill patient, excluding procedure time. ED Disposition Clinical Impression: Dental caries, Gingivitis Disposition: DC-01 TO HOME OR SELFCARE Is pt being admited?: No Does the pt Need Aspirin: No Condition: Stable Instructions: Dental Caries (ED), Gingivitis (ED) Additional Instructions: Follow-up with a dentist doctor in 3-5 days or if symptoms worsen and continue return to emergency room as soon as possible. Prescriptions: Chlorhexidine Mouthwash [Peridex] 15 ml MM BID #1 bottle Clindamycin [Clindamycin CAP] 300 mg PO Q8H #21 cap Ibuprofen [Motrin] 600 mg PO Q8H PRN #21 tablet PRN Reason: Pain Referrals: PRIMARY CARE, [Primary Care Provider] - 3-5 Days JAYDEN LACKEY MD [Staff Physician] - 3-5 Days [facility] [Outside] - 3-5 Days Forms: Work/School Release Form(ED)
== END 2018-08-08 18:08 | disposition home or self-care (01) ==
LOC: ED 15:36
DX: K02.9 Dental caries, unspecified (principal); K05.10 Chronic gingivitis, plaque induced
CPT/HCPCS: 99282

== ENCOUNTER 2018-12-13 08:14 | Emergency (ER) | payer OTHER ==
[2018-12-13 09:03] VITALS: BP 111/70
[2018-12-13] MEDS ORDERED: NORCO 5/325 PO ONE (10:47)
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
[2018-12-13] MEDS ORDERED: IBUPROFEN ONE (11:36)
[2018-12-13] MEDS ORDERED: IBUPROFEN PO ONE (11:37)
--- NOTE | 2018-12-13 13:06 | XRay Report ---
Right ankle: Pain. There is generalized edema of the distal leg, ankle, and proximal foot. The swelling appears slightly more prominent laterally. No evidence of fracture and no displacement noted. The bony structures appear well mineralized. Impression: Nonspecific swelling. No fracture.
== END 2018-12-13 13:17 | disposition home or self-care (01) ==
LOC: ED 08:14
DX: S96.911A Strain of unspecified muscle and tendon at ankle and foot level, right foot, initial encounter (principal); M54.5 Low back pain; F12.90 Cannabis use, unspecified, uncomplicated; V89.2XXA Person injured in unspecified motor-vehicle accident, traffic, initial encounter; Y93.89 Activity, other specified; Y92.488 Other paved roadways as the place of occurrence of the external cause; Y99.8 Other external cause status
CPT/HCPCS: 99283

== ENCOUNTER 2019-01-09 23:31 | Emergency (ER) | payer OTHER ==
[2019-01-10 00:04] LABS: Basophils # (Auto) 0.1 K/mm3 (0.0-0.1); Basophils % (Auto) 0.5 % (0.0-1.8); Eosinophils # (Auto) 0.2 K/mm3 (0.0-0.4); Eosinophils % (Auto) 2.4 % (0.0-4.3); Hematocrit 43.8 % (35.5-45.6); Hemoglobin 15.1 gm/dl (11.8-15.2); Lymphocytes # (Auto) 3.1 K/mm3 (1.2-5.4); Lymphocytes % (Auto) 31.8 % (13.4-35.0); Mean Corpuscular HGB Conc 35 % (32-34); Mean Corpuscular Volume 88 fl (84-94); Monocytes # (Auto) 1.2 K/mm3 (0.0-0.8); Monocytes % (Auto) 12.5 % (0.0-7.3); Platelet Count 374 K/mm3 (140-440); Red Blood Count 4.98 M/mm3 (3.65-5.03); Red Cell Distribution Width 14.2 % (13.2-15.2)
[2019-01-10 00:19] LABS: Alanine Aminotransferase 20 units/L (7-56); Albumin 4.1 g/dL (3.9-5); BUN/Creatinine Ratio 9; Blood Urea Nitrogen 12 mg/dL (9-20); Calcium 8.9 mg/dL (8.4-10.2); Hemolysis Index 12
[2019-01-10] MEDS ORDERED: ZOFRAN ODT PO ONE (01:18)
[2019-01-10] MEDS ORDERED: IBUPROFEN PO ONE (01:18)
--- NOTE | 2019-01-10 03:00 | Emergency Department Report ---
ED General Adult HPI - General Chief complaint: Abdominal Pain Stated complaint: NV Time Seen by Provider: 01/10/19 01:16 Source: patient Mode of arrival: Ambulatory Limitations: No Limitations - History of Present Illness Initial comments: pt presents for flu like symptoms body aches cough nausea vomiting, diarrhea x today, states symptoms improved after ibuprofen taken prior to arrival there is no abdominal pain at this time, last n/v this am, last diarrhea 8 hrs ago pt rates symptoms as 3/10 at this time down from 9/10 this am. Onset/Timin -: days(s) Location: abdomen, upper extremity, lower extremity Severity scale (0 -10): 3 Quality: aching Consistency: intermittent Improves with: rest Worsens with: other (activity ) Associated Symptoms: cough, fever/chills, malaise, nausea/vomiting Treatments Prior to Arrival: NSAID - Related Data Previous Rx's Medication Instructions Recorded Last Taken Type Dicyclomine [Bentyl] 10 mg PO QID PRN #20 capsule 01/10/19 Unknown Rx Ibuprofen 800 mg PO TID PRN #30 tablet 01/10/19 Unknown Rx Ondansetron [Zofran Odt] 1 tab PO Q8HR PRN #12 tab.rapdis 01/10/19 Unknown Rx Allergies Allergy/AdvReac Type Severity Reaction Status Date / Time No Known Allergies Allergy Verified 12/13/18 09:00 ED Review of Systems ROS: Stated complaint: NV Other details as noted in HPI Constitutional: chills, fever, malaise Eyes: denies: eye pain, eye discharge, vision change ENT: ear pain, throat pain, congestion Respiratory: cough Cardiovascular: denies: chest pain, palpitations Endocrine: no symptoms reported Gastrointestinal: abdominal pain, nausea, vomiting, diarrhea Genitourinary: denies: urgency, dysuria Musculoskeletal: denies: back pain, joint swelling, arthralgia Skin: denies: rash, lesions Neurological: denies: headache, weakness, paresthesias Psychiatric: denies: anxiety, depression Hematological/Lymphatic: denies: easy bleeding, easy bruising ED Past Medical Hx - Past Medical History Previous Medical History?: No Additional medical history: toothach - Surgical History Past Surgical History?: No - Social History Smoking Status: Current Some Day Smoker - Medications Home Medications: Home Medications Medication Instructions Recorded Confirmed Last Taken Type Dicyclomine [Bentyl] 10 mg PO QID PRN #20 capsule 01/10/19 Unknown Rx Ibuprofen 800 mg PO TID PRN #30 tablet 01/10/19 Unknown Rx Ondansetron [Zofran Odt] 1 tab PO Q8HR PRN #12 tab.rapdis 01/10/19 Unknown Rx ED Physical Exam - General Limitations: No Limitations General appearance: alert, in no apparent distress - Head Head exam: Present: atraumatic, normocephalic - Eye Eye exam: Present: normal appearance, PERRL, EOMI Pupils: Present: normal accommodation - ENT ENT exam: Present: normal orophraynx, mucous membranes moist, TM's normal bilaterally, normal external ear exam - Neck Neck exam: Present: normal inspection, full ROM. Absent: tenderness, meningismus, lymphadenopathy, thyromegaly - Respiratory Respiratory exam: Present: normal lung sounds bilaterally. Absent: respiratory distress, wheezes, stridor, chest wall tenderness - Cardiovascular Cardiovascular Exam: Present: regular rate, normal rhythm, normal heart sounds - GI/Abdominal GI/Abdominal exam: Present: soft, normal bowel sounds. Absent: distended, tenderness, guarding, rebound, rigid, bruit, hernia - Rectal Rectal exam: Present: deferred - Extremities Exam Extremities exam: Present: normal inspection, full ROM, normal capillary refill. Absent: tenderness, calf tenderness - Back Exam Back exam: Present: normal inspection, full ROM. Absent: tenderness, CVA tenderness (R), CVA tenderness (L), muscle spasm, rash noted - Neurological Exam Neurological exam: Present: alert, oriented X3, CN II-XII intact, normal gait, reflexes normal - Psychiatric Psychiatric exam: Present: normal affect, normal mood - Skin Skin exam: Present: warm, dry, intact, normal color. Absent: rash ED Course Vital Signs 01/09/19 23:36 Temperature 98.6 F Pulse Rate 97 H Respiratory 18 Rate Blood Pressure 135/84 O2 Sat by Pulse 99 Oximetry ED Medical Decision Making - Lab Data Result diagrams: 01/09/19 23:43 01/09/19 23:43 Labs 01/09/19 01/09/19 01/10/19 23:43 23:43 02:00 WBC 9.7 RBC 4.98 Hgb 15.1 Hct 43.8 MCV 88 MCH 30 MCHC 35 H RDW 14.2 Plt Count 374 Lymph % (Auto) 31.8 [place] % (Auto) 12.5 H Eos % (Auto) 2.4 Baso % (Auto) 0.5 Lymph # 3.1 [place] # 1.2 H Eos # 0.2 Baso # 0.1 Seg Neutrophils % 52.8 Seg Neutrophils # 5.1 Sodium 142 Potassium 4.5 Chloride 104.0 Carbon Dioxide 27 Anion Gap 16 BUN 12 Creatinine 1.4 Estimated GFR > 60 BUN/Creatinine Ratio 9 Glucose 95 Calcium 8.9 Total Bilirubin 0.20 AST 20 ALT 20 Alkaline Phosphatase 87 Total Protein 7.0 Albumin 4.1 Albumin/Globulin Ratio 1.4 Lipase 29 Influenza A (Rapid) Negative Influenza B (Rapid) Negative - Medical Decision Making CMP, CBC normall, Rapid flu: neg, pt states symptoms improved denies urine at this time states he is ready to go, pt is tolerating po intake without symptoms, there is no n/v no fever no cp no sob no back pain no diaphoresis at this time, plan: will dc to home as request with rx for zofran, ibuprofen, bentyl, pt advised to follow up with pcp in am, return to ed if symptoms worsen, pt verbalized agreement and understanding of same. Critical care attestation.: If time is entered above; I have spent that time in minutes in the direct care of this critically ill patient, excluding procedure time. ED Disposition Clinical Impression: Viral syndrome Abdominal pain Qualifiers: Abdominal location: generalized Qualified Code(s): R10.84 - Generalized abdomin al pain Nausea and vomiting Qualifiers: Vomiting type: unspecified Vomiting Intractability: non-intractable Qualified Code(s): R11.2 - Nausea with vomiting, unspecified Disposition: DC-01 TO HOME OR SELFCARE Is pt being admited?: No Does the pt Need Aspirin: No Condition: Stable Instructions: Acute Nausea and Vomiting (ED) Prescriptions: Dicyclomine [Bentyl] 10 mg PO QID PRN #20 capsule PRN Reason: abdominal spasms Ibuprofen 800 mg PO TID PRN #30 tablet PRN Reason: pain fever Ondansetron [Zofran Odt] 1 tab PO Q8HR PRN #12 tab.rapdis PRN Reason: Nausea And Vomiting Referrals: DM ZENG MD [Primary Care Provider] - 3-5 Days Forms: Work/School Release Form(ED) Time of Disposition: 03:14
[2019-01-10 03:23] VITALS: BP 126/78
== END 2019-01-10 03:22 | disposition home or self-care (01) ==
LOC: ED 23:31
DX: B34.9 Viral infection, unspecified (principal); R11.2 Nausea with vomiting, unspecified; R10.84 Generalized abdominal pain; F17.200 Nicotine dependence, unspecified, uncomplicated; K08.89 Other specified disorders of teeth and supporting structures
CPT/HCPCS: 36415; 80053; 83690; 85025; 87400; 99283; Q0162